=== PATIENT | female | born 1970 | race African-American/Black ===

== ENCOUNTER 2018-10-28 05:49 | Day surgery (SDC) | payer OTHER ==
[2018-10-28] MEDS ORDERED: LEVALBUTEROL NEB 1.25 MG/3 ML VIAL.NEB NEB ONE (08:48)
[2018-10-28] MEDS ORDERED: LIDOCAINE HCL 1% PF 300MG/30ML VIAL ONE (08:48)
[2018-10-28] MEDS ORDERED: ONDANSETRON HCL/PF 4 MG/ 2ML VIAL ONE (08:48)
[2018-10-28] MEDS ORDERED: PROPOFOL 200 MG/20 ML VIAL IV ONE (08:48)
[2018-10-28] MEDS ORDERED: MIDAZOLAM HCL 2 MG/2 ML VIAL ONE (08:48)
[2018-10-28] MEDS ORDERED: LIDOCAINE HCL 2% PF 100MG/5ML VIAL IJ ONE (08:48)
[2018-10-28] MEDS ORDERED: BUPIV. HCL 0.25% (2.5MG/ML)/EPI. (1:200,000) PF 30 ML VIAL IJ ONE (08:48)
[2018-10-28] MEDS ORDERED: SEVOFLURANE 250 ML LIQUID IH ONE (08:48)
[2018-10-28] MEDS ORDERED: fentaNYL CITRATE/PF 100 MCG/2 ML INJ. ONE (08:48)
[2018-10-28] MEDS ORDERED: GLYCOPYRROLATE 0.2 MG/1 ML 1 ML ONE (08:48)
[2018-10-28] MEDS ORDERED: PHENYLEPHRINE HCL 10 MG/1 ML ONE (08:48)
[2018-10-28] MEDS ORDERED: SODIUM CHLORIDE IRRIG SOLUTION 3,000 ML IRRIG.SOLN IR ONE (08:48)
[2018-10-28] MEDS ORDERED: SUGAMMADEX SODIUM 200 MG/2 ML VIAL IV ONE (08:48)
[2018-10-28] MEDS ORDERED: DEXAMETHASONE SODIUM PHOSPHATE 10 MG/ML VIAL ONE (08:48)
[2018-10-28] MEDS ORDERED: ceFAZolin SODIUM 1 GM VIAL ONE (08:48)
[2018-10-28] MEDS ORDERED: ROCURONIUM BROMIDE 10 MG/ML 5ML VIAL ONE (08:48)
--- NOTE | 2018-11-12 06:09 | Operative Note ---
PREOPERATIVE DIAGNOSIS: 1. Morbid obesity. 2. Arthritis. 3. Hypertension. POSTOPERATIVE DIAGNOSIS: 1. Morbid obesity. 2. Hiatal hernia. 3. Arthritis. 4. Hypertension. PROCEDURES PERFORMED: 1. Laparoscopic vertical sleeve gastrectomy. 2. Laparoscopic repair of hiatal hernia. 3. Upper gastrointestinal endoscopy. SURGEON: Wagner Puga M.D. INDICATIONS FOR PROCEDURE: Ms. Adame is a 48-year-old female who presented with features of morbid obesity. She was noted to have a weight of 403 pounds with a BMI of 60.3 with the above-listed comorbidities. The patient was advised laparoscopic vertical sleeve gastrectomy and possible hiatal hernia repair. The patient showed understanding and agreed to proceed. DESCRIPTION OF PROCEDURE: After explaining to the patient in detail and informed consent was obtained, the patient was identified in the preoperative holding area. The patient was transferred to the operating room and was placed in supine position. Sequential compressive devices were placed for DVT prophylaxis. Preoperative antibiotics were given. After induction of anesthesia, the abdomen was prepped and draped in a sterile fashion. Through a left upper quadrant 1-cm incision, and using Optiview technique, the peritoneal cavity was entered and pneumoperitoneum was created. Thereafter, under direct vision, a 5-mm trocar was placed in the left midabdomen, 15-mm trocar was placed in the right midabdomen, and another 5-mm trocar was placed in the right subcostal region. Through a 1-cm incision in the epigastrium, a Jean Marie retractor was introduced and the left lobe of the liver was retracted. On initial inspection, the patient was noted to have a 3-cm hiatal hernia. Using pars flaccida technique, the right jhonny was identified. The sac was gently dissected off the right jhonny, the phrenoesophageal membrane was divided anteriorly and I continued dissection of the sac along the left jhonny. I continued dissection superiorly to have adequate length of the esophagus within the abdomen. Once this was completed, I then took down the gastroepiploic vessels along the greater curvature. This was continued superiorly. The short gastric vessels were taken down. The gastrophrenic ligament was divided and the Angle of His was mobilized. Distally, the gastroepiploic vessels were taken down up to about 4 cm proximal to the pylorus. A 40 Greek Hurst bougie was inserted into the stomach and was placed along the lesser curve. I then performed an anterior cruroplasty with a [id number] Ethibond suture. Care was taken not to tighten the crura too much. I placed another suture on the esophagus and the right crura to prevent any recurrence of the hernia. Once this was completed, using the bougie as a guide, I then divided the stomach in a vertical fashion with multiple Endo ESPERANZA [employer] Black Load Staplers with No- Strips to create a loose sleeve around this 40 Greek bougie. The first firing was directed outwards towards the greater curvature. Subsequent firings were directed towards the Angle of His to create a loose sleeve around the #38 Greek bougie. The bougie was then removed and an upper GI endoscopy was performed. The scope was introduced into the esophagus, the stomach was insufflated. The sleeve appeared to be of adequate size. An air leak test was performed and there was no evidence to suggest a leak. The stomach was suctioned out and the scope was removed. Absolute hemostasis was ensured. Thorough saline irrigation was given. The Jean Marie retractor and the sleeve gastrectomy specimen was removed. The abdomen was then deflated. Incisions were closed with 4-0 Monocryl. The 15-mm port site incision was closed with 0 Vicryl using a suture passer. The skin was closed with 4-0 Monocryl. Dermabond was applied. The patient was stable at the end of the procedure. The patient was awakened from anesthesia and was transferred to the recovery room in stable condition. ESTIMATED BLOOD LOSS: Minimal. CONDITION OF THE PATIENT: Stable. FLUIDS GIVEN: Per Anesthesia note. SPECIMEN(S) SENT: Sleeve gastrectomy specimen. COMPLICATIONS: None. ANESTHESIA: General. Wagner Puga M.D. ENRRIQUE/jodi (Please copy [facility] provider when applicable) Job #[id number] GARY
[2018-11-15] MEDS ORDERED: fentaNYL CITRATE/PF 100 MCG/2 ML INJ. ONE (15:41)
== END 2018-10-28 10:44 | disposition other institution (70) ==
LOC: OPSURG 05:49
PROVIDERS: ATTEND Surgery
DX: K44.9 Diaphragmatic hernia without obstruction or gangrene (principal); E66.01 Morbid (severe) obesity due to excess calories; Z68.44 Body mass index [BMI] 60.0-69.9, adult; I10 Essential (primary) hypertension; M19.90 Unspecified osteoarthritis, unspecified site
CPT/HCPCS: 43235; 43775; 88305; 88313; J0690; J2001; J2250; J2370; J2405; J2704; J3010; J3490; J7614

== ENCOUNTER 2018-10-28 10:45 | Inpatient (IN) | payer OTHER ==
[2018-10-28] MEDS ORDERED: PROMETHAZINE HCL 25 MG in 0.9 % SODIUM CHLORIDE 50 ML IV PRN (10:57)
[2018-10-28] MEDS ORDERED: LEVALBUTEROL NEB 1.25 MG/3 ML VIAL.NEB IH PRN (10:57)
[2018-10-28 11:25] VITALS: BMI 56.0
[2018-10-28] MEDS: MORPHINE SULFATE 4 MG/ML VIAL IVP PRN ×5 (11:29→21:53)
[2018-10-28] MEDS: 0.9 % SODIUM CHLORIDE 1,000 ML IV SCH ×2 (11:31→18:39)
[2018-10-28] MEDS ORDERED: ALBUTEROL 90MCG/PUFF INHALER IH PRN (12:01)
--- NOTE | 2018-10-28 12:39 | History and Physical Report ---
History of Present Illnes - History of Present Illness Reason for Visit: S/P LSG WITH HIATAL HERNIA REPAIR History of Present Illness: Patient is a 48-year-old female who has tried multiple diets and exercise programs with no success. She states that she has been over weight for as long as she can remember. It was decided to go ahead with LSG. Procedure went well with hiatal hernia repair- patient will be admitted and monitored s/p surgical intervention. Patient has been on a liquid diet prior to surgery so she is a risk of dehydration s/p surgery. She will be admitted for IV hydration to help hydrate patient until he is able to tolerate a sufficient oral intake, will treat pain with IV medication until patient is able to tolerate oral meds, IV antiemetics to help reduce episodes of nausea and/or vomiting. Patient will be monitored closely using telemetry. We will monitor blood pressures closely due to hypertension. - Past Medical History Cardiac: HTN Pulmonary: Asthma CERTIFIED [employer]: Migraine Gastrointestinal: GERD Psych: Anxiety, Depression Musculoskeletal: Osteoarthritis Endocrine: obesity Grav: 5 Para: 4 Ab: 1 - Past Surgical History Past Surgical History: (x4), Hernia Repair (1970), Other (BACK ), Other (detached retina 2017) - Past Family History Mother Family History: Hypertension Father Family History: Cancer, Hypertension - Past Social History Smoke: <1 pack per day Occupation: Disabled Alcohol: None Drugs: Marijuana Lives: With Family Domestic Violence: Negative - Health Maintenance Health Maintenance: Cholesterol. denies: Influenza Vaccine Influenza Vaccine: No, Patient Refused Pneumonia Vaccine: No Resuscitation Status: Resusciation Status Resuscitation Status Full Code Review of Systems - Review of Systems Constitutional: negative: Fever, Chills Eyes: negative: conjunctivae inflammation, eyelid inflammation ENT: negative: Ear Pain, Nose Discharge, Throat Pain Respiratory: negative: Cough, Shortness of Breath Cardiovascular: negative: Chest Pain, Light Headedness Gastrointestinal: Nausea, Abdominal Pain. negative: Vomiting Genitourinary: negative: Dysuria Musculoskeletal: Back Pain Skin: Other (surgical sites x 5) Neurological: negative: Weakness - Medications/Allergies Allergies/Adverse Reactions: Allergies Allergy/AdvReac Type Severity Reaction Status Date / Time ibuprofen Allergy Verified 10/28/18 10:57 Home Medications: Home Medications Albuterol Sulfate [Proair Hfa] 2 inh INH QID PRN 10/28/18 Albuterol Sulfate [Proair Hfa] 2 inh INH QID PRN 10/28/18 Divalproex Sodium [Divalproex Sodium ER] 1,000 mg PO HS 10/28/18 Fluticasone Propion/Salmeterol [Advair 250-50 Diskus] 1 each INH DAILY 10/28/18 Fluticasone Propionate [Flovent Hfa] 1 inh INH BID 10/28/18 Lisinopril 40 mg PO DAILY 10/28/18 Risperidone 3 mg PO HS 10/28/18 Sertraline HCl 100 mg PO AM 10/28/18 oxyCODONE HCL/ACETAMINOPHEN [Percocet 7.5-325] 1 each PO TID PRN 10/28/18 Current Inpatient Medications: Current Inpatient Medications Hydrocodone Bitart/Acetaminophen (Hycet 7.5-325mg/15 Ml Ud Cup) 15 ml PO Q4 PRN PRN Reason: PAIN 1-4 Stop: 11/01/18 10:56 Albuterol Sulfate (Ventolin Hfa) 2 puff IH QID PRN PRN Reason: SOA Cefazolin Sodium/Dextrose (Ancef 1 Gm/50 Ml-Dextrose) 1 gm IV Q8H [facility] Stop: 10/29/18 01:01 Famotidine (Pepcid) 20 mg IVP BID [facility] Stop: 11/01/18 20:59 Promethazine HCl 25 mg/ Sodium (Chloride) 51 mls @ 200 mls/hr IV Q6 PRN PRN Reason: Nausea / Vomiting Stop: 11/01/18 10:56 Sodium Chloride (Normal Saline) 1,000 mls @ 150 mls/hr IV Q8H [facility] Last Admin: 10/28/18 11:31 Dose: 150 mls/hr Levalbuterol HCl (Xopenex Neb) 1.25 mg IH Q4H PRN PRN Reason: Wheezing Miscellaneous (Fluticasone Propionate [Flovent Hfa]) 1 inh INH BID [facility] Morphine Sulfate () 2 mg IVP Q2 PRN PRN Reason: PAIN 5-7 Stop: 10/29/18 10:56 Morphine Sulfate (Roxanol) 10 mg PO Q4 PRN PRN Reason: PAIN 8-10 Stop: 11/01/18 10:56 Morphine Sulfate () 4 mg IVP Q2 PRN PRN Reason: PAIN 8-10 Stop: 10/29/18 10:56 Last Admin: 10/28/18 11:29 Dose: 4 mg Ondansetron HCl (Zofran) 4 mg IVP Q6H PRN PRN Reason: Nausea / Vomiting Stop: 11/01/18 10:56 Exam - Exam Vital Signs: Vital Signs (72 hours) 10/28/18 10/28/18 10/28/18 10:57 11:07 11:18 Temperature 97.8 F 97.8 F Pulse Rate 96 H Pulse Rate [ 96 H 96 H Left] Respiratory 18 18 Rate Blood Pressure 150/78 150/78 [Left Arm] O2 Sat by Pulse 93 93 93 Oximetry 10/28/18 10/28/18 10/28/18 11:20 11:40 12:05 Temperature 97.8 F 97 F L 97.2 F L Pulse Rate Pulse Rate [ 96 H 96 H 97 H Left] Respiratory 18 20 20 Rate Blood Pressure 150/78 147/79 168/79 [Left Arm] O2 Sat by Pulse 93 96 96 Oximetry General: Alert, Oriented to Person, Oriented to Place, Oriented to Time, Cooperative, Moderate distress, Morbidly Obese HEENT: PERRLA, Nose Mucous membr. moist/[place] Neck: Normal Range of Motion Carotids: no bruit Lungs: Clear to auscultation, Normal air movement Cardiovascular: Regular rate, Normal S1, Normal S2 Peripheral Edema: none Peripheral Pulses: 2+ Abdomen: Soft, Decreased Bowel Sounds Integumentary: [place], Warm, Dry, Other (incision sites x 5) Extremities: No edema, Normal pulses, No tenderness/swelling Neurological: Strength Equal Bilat, Sensation intact Psych/Mental Status: Mental status NL, Mood NL, Appropriate Affect, Intact Judgment Assessment/Plan - Assessment/Plan (1) S/P gastric surgery Status: Acute Current Visit: Yes Plan: Plan to admit for IV hydration, IV pain meds, and IV antiemetics. Lovenox and SCDs to help prevent DVTs, IS and frequent ambulation will be implemented. Start ice chips and advance diet as tolerated. (2) Morbid obesity due to excess calories Status: Acute Current Visit: Yes Plan: Patient is s/p gastric sleeve. We will assist patient with implementing gastric sleeve diet protocol starting with ice chips and clear liquids and advancing as tolerated once nausea is controlled and patient is able to tolerate PO (3) Anxiety and depression Status: Acute Current Visit: Yes Plan: Will hold medications at this time and monitor closely (4) Hypertension Status: Acute Current Visit: Yes Qualifiers: Hypertension type: essential hypertension Qualified Code(s): I10 - Essential (primary) hypertension Plan: Will hold lisinopril at this time and monitor blood pressure closely; may restart if needed (5) Osteoarthritis Status: Acute Current Visit: Yes Qualifiers: Osteoarthritis location: unspecified site Plan: Will have patient ambulate frequently; may offer K-Pad (6) GERD (gastroesophageal reflux disease) Status: Acute Current Visit: Yes Plan: Will give Pepcid IV BID VTE Assessment - RISK FACTOR SCORE VTE RISK FACTOR SCORES: AGE 40-60 YEARS, OBESITY, SMOKER, MAJOR SURGERY/ANESTHESIA TIME > 1 HOUR - RISK VTE HIGH RISK: SCORE OF 3-4 (RISK PROXIMAL DVT 4-8%) PROPHYLAXIS NEEDED (lovenox daily, SCDs while in bed, frequent ambulation, IS)
[2018-10-28] MEDS: ceFAZolin SODIUM 1 GM/50 ML PIGGYBACK IV SCH (17:02)
[2018-10-28] MEDS: FAMOTIDINE 20 MG/2 ML VIAL IVP SCH (20:36)
[2018-10-28] MEDS ORDERED: FLUTICASONE PROPIONATE INH SCH (21:00)
[2018-10-28] MEDS: ONDANSETRON HCL/PF 4 MG/ 2ML VIAL IVP PRN (21:49)
[2018-10-28] MEDS: FLUTICASONE/SALMETEROL 250-50 INHALER IH SCH (22:46)
[2018-10-29] MEDS: ceFAZolin SODIUM 1 GM/50 ML PIGGYBACK IV SCH (00:59)
[2018-10-29] MEDS: MORPHINE SULFATE 4 MG/ML VIAL IVP PRN ×3 (01:00→09:42)
[2018-10-29] MEDS: 0.9 % SODIUM CHLORIDE 1,000 ML IV SCH ×2 (02:24→08:40)
[2018-10-29] MEDS: HYDROcodone-ACETAMIN 7.5-325/15ML SOLN UD CUP PO PRN (02:43)
[2018-10-29 07:03] LABS: eGFR (Non-African) > 60
--- NOTE | 2018-10-29 07:07 | Inpatient Progress Note ---
Subjective - Required Recertification Statement I anticipate X number of days because-include discharge plan: 1 - Review of Systems Events since last encounter: Patient states that she had a rough night- states that she just could not get comfortable- however, pain is better this morning. She had some nausea- no vomiting- she was encouraged to sip her drinks and wait in between drinks- she states that her pain is tolerable and pain medications are working. She has been up walking in the [place]ernandez, wearing SCDs while in bed, and using Incentive Spirometry- incision sites are dry and intact. General: Denies: Chills, Fatigue HEENT: Denies: Head Aches, Dysphasia Pulmonary: Denies: Dyspnea Cardiovascular: Denies: Chest Pain, Light Headedness Gastrointestinal: Nausea, Abdominal Pain. Denies: Vomiting Genitourinary: Denies: Dysuria Musculoskeletal: Denies: Back Pain Neurological: Denies: Weakness Objective - Exam Vitals and I&O: Vital Signs Temp 97.8 F 10/29/18 06:17 Pulse 102 H 10/29/18 06:17 Resp 16 10/29/18 06:17 BP 151/78 10/29/18 06:17 Pulse Ox 96 10/29/18 06:17 Intake & Output 10/28/18 10/28/18 10/29/18 11:59 23:59 11:59 Intake Total 160 1830 Output Total 400 1100 Balance -240 730 Weight 177.355 kg Intake: IV 1800 Right AC space 1800 Oral 160 30 Output: Urine 400 1100 Other: Voiding Method Toilet Toilet Toilet # Voids 0 0 3 # Bowel Movements 0 General: Alert, Oriented to Person, Oriented to Place, Oriented to Time, Coopera tive, Mild distress, Morbidly Obese HEENT: PERRLA, Mouth Mucous membr. moist/[place], Nose Mucous membr. moist/[place] Neck: Supple, +2 carotid pulse wo bruit Lungs: Clear to auscultation, Normal air movement, Speaks full Sentences Cardiovascular: Regular rate, Normal S1, Normal S2 Abdomen: Normal bowel sounds, Soft Extremities: No edema, Normal pulses, No tenderness/swelling Skin: Normal, [place], Warm, Other (incision sites are dry and intact) Neurological: Normal gait, Normal speech, Strength Equal Bilat, Normal tone, Sensation intact Psych/Mental Status: Mental status NL, Mood NL, Appropriate Affect, Intact Judgment - Results Results: Laboratory Results WBC 10.20 K/ul (4.00-12.00) 10/29/18 06:00 RBC 4.47 M/ul (3.90-5.20) 10/29/18 06:00 Hgb 13.8 g/dL (11.5-16.0) 10/29/18 06:00 Hct 40.8 % (34.5-46.5) 10/29/18 06:00 MCV 91.0 fl (80.0-100.0) 10/29/18 06:00 MCH 31.0 pg (28.0-34.0) 10/29/18 06:00 MCHC 33.9 g/dL (30.0-36.0) 10/29/18 06:00 RDW 13.3 % (11.3-14.3) 10/29/18 06:00 Plt Count 296 K/mm3 (130-400) 10/29/18 06:00 Assessment/Plan - Assessment/Plan (1) S/P gastric surgery Status: Acute Current Visit: Yes Plan: Will continue to have patient ambulate frequently in the [place], wear SCDs while in bed, frequent use of incentive spirometer, continue IVF until patient can take in sufficient oral intake- pt is tolerating po meds (2) Morbid obesity due to excess calories Status: Acute Current Visit: Yes Plan: Will continue with clear liquid diet (3) Anxiety and depression Status: Acute Current Visit: Yes Plan: stable will continue to hold meds (4) Hypertension Status: Acute Current Visit: Yes Qualifiers: Hypertension type: essential hypertension Qualified Code(s): I10 - Essential (primary) hypertension Plan: Stable- will continue to hold BP meds and check BP regularly (5) Osteoarthritis Status: Acute Current Visit: Yes Qualifiers: Osteoarthritis location: unspecified site Plan: Stable (6) GERD (gastroesophageal reflux disease) Status: Acute Current Visit: Yes Plan: Will continue to give Pepcid IV BID
[2018-10-29 07:22] LABS: MONOCYTES % 5 % (0-11); SEGMENTED NEUTROPHILS % 79 % (39-79)
[2018-10-29] MEDS: FLUTICASONE/SALMETEROL 250-50 INHALER IH SCH ×2 (08:10→20:46)
[2018-10-29] MEDS: FAMOTIDINE 20 MG/2 ML VIAL IVP SCH ×2 (08:12→20:46)
[2018-10-29] MEDS: ONDANSETRON HCL/PF 4 MG/ 2ML VIAL IVP PRN ×2 (09:42→19:31)
[2018-10-29] MEDS: MORPHINE SULFATE 10MG/0.5ML ORAL SOLN UD CUP PO PRN ×3 (12:26→23:58)
[2018-10-30] MEDS: HYDROcodone-ACETAMIN 7.5-325/15ML SOLN UD CUP PO PRN ×2 (01:42→09:45)
[2018-10-30 05:58] LABS: eGFR (Non-African) > 60
--- NOTE | 2018-10-30 06:05 | Discharge Summary ---
Discharge Summary - Discharge [facility] Admission Date: 10/28/18 Discharge Date: 10/30/18 History of Present Illness: Patient is a 48-year-old female who has tried multiple diets and exercise programs with no success. She states that she has been over weight for as long as she can remember. It was decided to go ahead with LSG. Procedure went well with hiatal hernia repair- patient will be admitted and monitored s/p surgical intervention. Patient has been on a liquid diet prior to surgery so she is a risk of dehydration s/p surgery. She will be admitted for IV hydration to help hydrate patient until he is able to tolerate a sufficient oral intake, will treat pain with IV medication until patient is able to tolerate oral meds, IV antiemetics to help reduce episodes of nausea and/or vomiting. Patient will be monitored closely using telemetry. We will monitor blood pressures closely due to hypertension. Condition at Discharge: Stable Home Medications: Ambulatory Orders Medication Instructions Recorded Albuterol Sulfate [Proair Hfa] 2 inh INH QID PRN 10/28/18 Albuterol Sulfate [Proair Hfa] 2 inh INH QID PRN 10/28/18 Divalproex Sodium [Divalproex 1,000 mg PO HS 10/28/18 Sodium ER] Fluticasone Propion/Salmeterol 1 each INH DAILY 10/28/18 [Advair 250-50 Diskus] Fluticasone Propionate [Flovent 1 inh INH BID 10/28/18 Hfa] Lisinopril 40 mg PO DAILY 10/28/18 Risperidone 3 mg PO HS 10/28/18 Sertraline HCl 100 mg PO AM 10/28/18 oxyCODONE HCL/ACETAMINOPHEN 1 each PO TID PRN 10/28/18 [Percocet 7.5-325] Consultations this Visit: None Procedures this Visit: Other (S/P LSG WITH HIATAL HERNIA REPAIR) Allergies/Adverse Reactions: Allergies Allergy/AdvReac Type Severity Reaction Status Date / Time ibuprofen Allergy Verified 10/28/18 10:57 Discharge Summary: Patient is a 48-year-old female that underwent the gastric sleeve procedure with hiatal hernia repair and has done well. She has been very cooperative with her care by ambulating frequently, using her incentive spirometer, and wearing her SCDs while in bed. She has been compliant with her diet during hospitalization. She is having minimal discomfort at this time and minimal nausea- she has is passing gas and belching. She is aware of discharge instructions and what she can and cannot do post surgical- she is aware of the strict diet she must follow to decrease discomfort and have success after procedure. She has family support and family will be taking her home- medications written by surgeon given to patient. She feels ready to go home. Hospital Course: Patient received pain medications, antiemetics, and IVF and was transitioned to oral. She has been up ambulating and using incentive spirometer. - Final Diagnosis (1) S/P gastric surgery Problems: Incision without redness or drainage, positive bowel sounds, minimal discomfort, belching and flatus, no extremity pain or edema Right or Left: Right (2) Morbid obesity due to excess calories Problems: Continue with bariatric sleeve diet- clear liquids today- full liquids starting tomorrow Right or Left: Right (3) Anxiety and depression Problems: Stable Right or Left: Right (4) Hypertension Problems: Stable Right or Left: Right (5) Osteoarthritis Problems: Stable Right or Left: Right (6) GERD (gastroesophageal reflux disease) Problems: Stable Right or Left: Right
[2018-10-30] MEDS: FLUTICASONE/SALMETEROL 250-50 INHALER IH SCH (08:29)
[2018-10-30] MEDS: FAMOTIDINE 20 MG/2 ML VIAL IVP SCH (08:30)
[2018-10-30 09:38] VITALS: BP 146/80
== END 2018-10-30 10:25 | disposition home or self-care (01) | DRG 641 ==
LOC: SOUTH 10:45
PROVIDERS: ADMIT Nurse Practitioner Family; ATTEND Nurse Practitioner Family
DX: E66.01 Morbid (severe) obesity due to excess calories (principal); G89.18 Other acute postprocedural pain; R11.0 Nausea; I10 Essential (primary) hypertension; K21.9 Gastro-esophageal reflux disease without esophagitis
CPT/HCPCS: 80048; 80053; 85025; 99222; 99231; 99238; J2270; J2405; J2550; A9270-GY; J7030